=== PATIENT | female | born 1970 | race Asian ===

== ENCOUNTER → 2017-02-06 | Outpatient (CLI) | payer OTHER ==
[~2017-02-06] MED LIST: CHOL500014 PO; FAMO20TA7 PO; NORG1TAB68 PO; OMEP-110 PO; SPIR50TA2 PO; ZOLP10TA PO
== END | disposition home or self-care (01) ==
LOC: CFH 08:17
PROVIDERS: ATTEND Obstetrics & Gynecology
DX: Z12.31 Encounter for screening mammogram for malignant neoplasm of breast (principal)
CPT/HCPCS: G0202

== ENCOUNTER → 2019-05-06 | Outpatient (CLI) | payer OTHER ==
[~2019-05-06] MED LIST changes: -CHOL500014 PO; +CHOL500045 PO; -SPIR50TA2 PO; +SPIR50TA4 PO
== END | disposition home or self-care (01) ==
LOC: CFH 08:15
PROVIDERS: ATTEND Obstetrics & Gynecology
DX: Z12.31 Encounter for screening mammogram for malignant neoplasm of breast (principal); Z80.3 Family history of malignant neoplasm of breast
CPT/HCPCS: 77063; 77067

== ENCOUNTER → 2020-01-01 | Outpatient (CLI) | payer OTHER | END | disposition home or self-care (01) | LOC: CFH 10:24 | PROVIDERS: ATTEND Family Medicine | DX: R05 Cough (principal) | CPT/HCPCS: 71046 ==

== ENCOUNTER 2021-06-21 21:32 | Emergency (ER) | payer OTHER ==
[~2021-06-21] VITALS: Ht 149.9 cm; Wt 42.7 kg
[2021-06-21 21:45] VITALS: BP 134/68
--- NOTE | 2021-06-21 22:25 | NUR ---
[employer] RENTAL AGENT: PT. TO ROOM FROM LOBBY AT THIS TIME.
--- NOTE | 2021-06-21 23:15 | NUR ---
NO CHANGE IN EXAM/ NO NEURO DEFICITS. DISCHARGED HOME AFTER REVIEW OF HOME CARE/ SXS TO WATCH FOR
== END 2021-06-21 23:17 ==
LOC: ED 23:13
DX: S16.1XXA Strain of muscle, fascia and tendon at neck level, initial encounter (principal); R51.9 Headache, unspecified; K21.9 Gastro-esophageal reflux disease without esophagitis; Z88.2 Allergy status to sulfonamides; V49.49XA Driver injured in collision with other motor vehicles in traffic accident, initial encounter; Y93.89 Activity, other specified; Y92.410 Unspecified street and highway as the place of occurrence of the external cause; Y99.8 Other external cause status; Z88.6 Allergy status to analgesic agent; Z88.5 Allergy status to narcotic agent
CPT/HCPCS: 99281